=== PATIENT | female | born 1965 | race Caucasian/White ===

== ENCOUNTER → 2019-10-10 | Outpatient (CLI) | payer MEDICARE ==
[~2019-10-10] MED LIST: ASCO1CAP2 PO; ASPI-496 PO; FLUO40CA2 PO; HYDR25TA6 PO; MULT-94 PO; lipitor PO; wellbutrin PO
[2019-10-10 14:15] LABS: ALBUMIN 3.9 g/dL (3.4-5.0); ANION GAP 7 mmol/L (5-15); CALCIUM 9.5 mg/dL (8.5-10.1); CHLORIDE 104 mmol/L (98-107)
[2019-10-10 14:18] LABS: ALANINE AMINOTRANSFERASE 33 U/L (12-78); ALKALINE PHOSPHATASE 66 U/L (45-117); BILIRUBIN,TOTAL 0.5 mg/dL (0.2-1.0); CREATININE 0.92 mg/dL (0.55-1.02); TOTAL PROTEIN 7.6 g/dL (6.4-8.2)
== END | disposition home or self-care (01) ==
LOC: STAR 13:09
PROVIDERS: ATTEND Internal Medicine Gastroenterology
DX: Z01.818 Encounter for other preprocedural examination (principal); D12.0 Benign neoplasm of cecum; K57.30 Diverticulosis of large intestine without perforation or abscess without bleeding
CPT/HCPCS: 36415; 80053

== ENCOUNTER 2019-10-16 06:30 | Day surgery (SDC) | payer MEDICARE ==
[~2019-10-16] VITALS: Ht 162.6 cm; Wt 77.0 kg
[2019-10-16] MEDS ORDERED: LACTATED RINGERS 1,000 ML IV SCH (06:44)
[2019-10-16] MEDS ORDERED: hydrALAzine 20 MG/ML, 1ML IV PRN (07:30)
[2019-10-16] MEDS ORDERED: OXYcodone 5 MG/5 ML ORAL.SOL UDC PO PRN (07:30)
[2019-10-16] MEDS ORDERED: FENTANYL PF 100 MCG/2ML IV PRN (07:30)
[2019-10-16] MEDS ORDERED: ONDANSETRON 2MG/ML, 2ML IV PRN (07:30)
[2019-10-16] MEDS ORDERED: LABETALOL 5MG/ML, 20ML IV PRN (07:30)
[2019-10-16] MEDS ORDERED: MEPERIDINE/PF 25MG/ML,1ML IVPush PRN (07:30)
[2019-10-16] MEDS ORDERED: PROMETHAZINE 25 MG/ML, 1ML IV PRN (07:30)
[2019-10-16] MEDS ORDERED: HYDROmorphone 2 MG/ML, 1ML IVPush PRN (07:30)
[2019-10-16] MEDS ORDERED: FENTANYL PF 100 MCG/2ML ONE (07:51)
[2019-10-16] MEDS ORDERED: MIDAZOLAM 1 MG/ML, 2ML ONE (07:51)
[2019-10-16] MEDS ORDERED: PROPOFOL 10 MG/ML, 50ML ONE (11:00)
== END 2019-10-16 10:35 | disposition home or self-care (01) ==
LOC: OUT 06:30
PROVIDERS: ATTEND Internal Medicine Gastroenterology
DX: D12.0 Benign neoplasm of cecum (principal); K63.89 Other specified diseases of intestine; F32.9 Major depressive disorder, single episode, unspecified; E78.00 Pure hypercholesterolemia, unspecified; I10 Essential (primary) hypertension; Z90.710 Acquired absence of both cervix and uterus; Z98.891 History of uterine scar from previous surgery; Z98.890 Other specified postprocedural states; Z86.010 Personal history of colon polyps; Z79.899 Other long term (current) drug therapy; Z87.891 Personal history of nicotine dependence
CPT/HCPCS: 45390; 88305; A4648; J2250; J2704; J3010; J7120

== ENCOUNTER 2020-06-10 05:41 | Day surgery (SDC) | payer MEDICARE ==
[~2020-06-10] VITALS: Ht 162.6 cm; Wt 81.6 kg
[2020-06-10] MEDS ORDERED: CHLORHEXIDINE 15 ML UDC MM STA (06:47)
[2020-06-10] MEDS ORDERED: LACTATED RINGERS 1,000 ML IV SCH (06:47)
[2020-06-10 06:48] VITALS: BP 133/91
[2020-06-10] MEDS ORDERED: BUPR150T73 PO (07:15)
[2020-06-10] MEDS ORDERED: ATOR40TA PO (07:15)
[2020-06-10] MEDS ORDERED: LISI-170 PO (07:15)
[2020-06-10] MEDS ORDERED: PROPOFOL 50 ML ONE (07:32)
[2020-06-10 07:33] LABS: ALANINE AMINOTRANSFERASE 27 U/L (12-78); ALBUMIN 3.6 g/dL (3.4-5.0); ANION GAP 7 mmol/L (5-15); CALCIUM 8.8 mg/dL (8.5-10.1); CHLORIDE 105 mmol/L (98-107); CREATININE 0.81 mg/dL (0.55-1.02)
[2020-06-10 07:36] LABS: ALKALINE PHOSPHATASE 65 U/L (45-117); BILIRUBIN,TOTAL 0.8 mg/dL (0.2-1.0); TOTAL PROTEIN 7.1 g/dL (6.4-8.2)
[2020-06-10] MEDS ORDERED: ONDANSETRON 2MG/ML, 2ML IVPush PRN (08:00)
[2020-06-10] MEDS ORDERED: PROMETHAZINE 25 MG/ML, 1ML IVPush PRN (08:00)
[2020-06-10] MEDS ORDERED: ACETAMINOPHEN 325 MG TABLET PO PRN (08:00)
[2020-06-10] MEDS ORDERED: OXYcodone 5 MG/5 ML ORAL.SOL UDC PO PRN (08:00)
[2020-06-10] MEDS ORDERED: LORazepam 2 MG/ML, 1ML IVPush PRN (08:00)
[2020-06-10] MEDS ORDERED: FENTANYL PF 100 MCG/2ML IV PRN (08:00)
[2020-06-10] MEDS ORDERED: PROMETHAZINE 25 MG SUPP PR PRN (08:00)
== END 2020-06-10 10:00 | disposition home or self-care (01) ==
LOC: OUT 05:41
PROVIDERS: ATTEND Internal Medicine Gastroenterology
DX: Z09 Encounter for follow-up examination after completed treatment for conditions other than malignant neoplasm (principal); Z20.828 Contact with and (suspected) exposure to other viral communicable diseases; D12.0 Benign neoplasm of cecum; D12.8 Benign neoplasm of rectum; K57.30 Diverticulosis of large intestine without perforation or abscess without bleeding; I10 Essential (primary) hypertension; F41.9 Anxiety disorder, unspecified; Z86.010 Personal history of colon polyps
CPT/HCPCS: 36415; 45380; 45381; 45385; 80053; 87635; 88305; A4648; J2704; J7120